=== PATIENT | female | born 1995 | race Caucasian/White ===

== ENCOUNTER 2020-09-23 15:35 | Outpatient (REF) | payer MEDICAID, SELFPAY | END 2020-09-23 15:36 | disposition home or self-care (01) | LOC: HO.LAB 15:35 | PROVIDERS: Visit Provider Internal Medicine | DX: Z20.828 Contact with and (suspected) exposure to other viral communicable diseases (principal) | CPT/HCPCS: C9803; U0003 ==

== ENCOUNTER 2021-04-19 17:08 | Emergency (ER) | payer MEDICAID, SELFPAY ==
[2021-04-19 18:00] VITALS: BP 108/61; PULSE 56; RESP 20; O2SAT 100; BMI 31.4
--- NOTE | 2021-04-19 19:33 | ED.FEMALEGU ---
HPI - Female Genitourinary General Chief complaint: Urogenital-Female Stated complaint: Flank pain Time Seen by Provider: 04/19/21 17:28 Source: patient and family Mode of arrival: ambulatory Limitations: no limitations History of Present Illness MD elicited complaint: other (back pain) Onset (ago): day(s) (2) Location of symptoms: low back Severity: moderate Female Urogenital Radiation: Non-Radiating Quality of pain: cramping Consistency: constant Vaginal discharge: none Vaginal bleeding: none Exacerbating factors: movement Relieving factors: none Associated symptoms: denies other symptoms Treatment prior to arrival: none Related Data Previous Rx's Medication Instructions Recorded cyclobenzaprine 10 mg PO TID PRN #14 tab 04/19/21 ibuprofen 600 mg PO Q6H PRN #30 tab 04/19/21 lidocaine 1 patch TOPICAL DAILY PRN #10 ea 04/19/21 nitrofurantoin monohyd/m-cryst 100 mg PO BID 5 Days #10 cap 04/19/21 [Macrobid] Allergies Allergy/AdvReac Type Severity Reaction Status Date / Time No Known Allergies Allergy Unverified 06/18/20 17:49 [No Known Allergies*] pt states no food/medication Allergy Unknown Uncoded 12/20/16 00:00 a Review of Systems Review of Systems: Constitutional : No Weight loss, No Fever, No Chills, ENT/Mouth : No Hearing loss, No Ear Pain, No Nasal Congestion, No Sinus Pain, No Hoarseness, No sore throat, No Rhinorrhea, No Swallowing Difficulty Cardiovascular : No Chest Pain, No SOB Respiratory : No Cough, No Dyspnea Gastrointestinal : No Nausea, No Vomiting, No Diarrhea, No abdominal Pain, No Hematochezia, No Melena Genitourinary : No Dysuria, No Urinary Frequency, No Hematuria, No Urinary Incontinence, Musculoskeletal : positive back pain Skin : No Skin Lesions, No rash Neuro : No Weakness, No Numbness, No Paresthesias, no loss of bowel or bladder incontinence, no saddle anesthesia PMFSH Past Medical History Attestation statement: The following information was validated with the patient. Medical History No active medical problems Social History Social History (Updated 04/19/21 @ 19:50 by Ramya Jimenez DO) Patient Tobacco Use Status: Never used Tobacco Use of substances other than those prescribed or required for medical reasons: No Advance Directives: No Advance Directives Information Provided: Yes Patient : No Physical Exam Vital Signs: Vital Signs: Last Vital Signs Pulse 56 04/19/21 18:00 Resp 20 04/19/21 18:00 BP 108/61 04/19/21 18:00 Pulse Ox 100 04/19/21 18:00 Body Mass Index 31.4 Appearance: Alert. Oriented X3. No acute distress. Eyes: Pupils equal, round and reactive to light. ENT: Pharynx normal. Neck: Normal inspection. Neck supple. CVS: Normal heart rate and rhythm. Pulses normal. Respiratory: No respiratory distress. Breath sounds normal. Abdomen: Soft and non-tender. Back: ttp along L low lumbar back Skin: Skin warm and dry. Normal skin color. Normal skin turgor. Extremities: No lower extremity edema. No calf ttp Neuro: Oriented X 3. No motor deficit. No sensory deficit. Course Course Course Narrative: no vomiting, afebrile, doubt stone doubt pyelo will place on macrobid MDM - Female Genitourinary MDM Narrative Medical decision making narrative: 25 yo female otherwise healthy here with L low back pain no b/b incontinence, no saddle anesthesia - pain seems MSK in nature, no GI or symptoms no prior stones, at this time will obtain UA, treat for pain and if improved stable for DC Lab Data Labs: Lab Results 04/19/21 04/19/21 Range/Units 19:35 19:59 Urine Color YELLOW Urine Appearance HAZY Urine pH 6.0 (5.0-8.0) Ur Specific [place] >= 1.030 H (1.005-1.025) Urine Protein NEG (NEG-TRACE) MG/DL Urine Glucose (UA) NEG (NEG) MG/DL Urine Ketones NEG (NEG) MG/DL Urine Blood NEG (NEG) Urine Nitrite NEG (NEG) Ur Leukocyte Esterase TRACE H (NEG) Urine RBC 0 (0) /HPF Urine WBC 5-9 H (0-4) /HPF Ur Squamous Epith Cells 3+ /LPF Urine Bacteria 2+ /LPF Urine Test NEGATIVE (NEGATIVE) Discharge Plan Discharge Clinical Impression: Urinary tract infection Qualifiers: Urinary tract infection type: acute cystitis Hematuria presence: without hematuria Qualified Code(s): N30.00 - Acute cystitis without hematuria Low back pain Qualifiers: Chronicity: acute Back pain laterality: left Sciatica presence: without sciatica Qualified Code(s): M54.5 - Low back pain Patient Disposition: Home, Self-Care Instructions: Urinary Tract Infection in Women (ED), Acute Low Back Pain (ED) Additional Instructions: return to ED for any worsening symptoms or concerns Prescriptions: New cyclobenzaprine 10 mg tablet 10 mg PO TID PRN (Reason: muscle spasm) Qty: 14 RF: 0 lidocaine 4 % adhesive patch,medicated 1 patch topical DAILY PRN (Reason: pain) Qty: 10 RF: 0 ibuprofen 600 mg tablet 600 mg PO Q6H PRN (Reason: pain) Qty: 30 RF: 0 nitrofurantoin monohyd/m-cryst [Macrobid] 100 mg capsule 100 mg PO BID 5 Days Qty: 10 RF: 0 Stand Alone Forms: Work/School Release
[2021-04-19] MEDS: Cyclobenzaprine HCl 10 MG TABLET PO (19:39)
[2021-04-19] MEDS: Ketorolac Tromethamine 60 MG/2 ML VIAL IM (19:39)
[2021-04-19] MEDS: Lidocaine 4 % Patch ADH..PATCH 1 PATCH TRANSDERMA (19:40)
[2021-04-19 19:46] LABS: UPreg QC Valid YES; Urine Pregnancy NEGATIVE (NEGATIVE)
[2021-04-19 20:12] LABS: Glucose Urine UA NEG (NEG); Leukocyte Esterase Urine TRACE (NEG); Nitrite Urine NEG (NEG); Specific Gravity - Urine >= 1.030 (1.005-1.025); UACC Culture Trigger YES; Urine Blood NEG (NEG); Urine Ketones NEG (NEG); Urine Protein NEG (NEG-TRACE)
[2021-04-19 20:14] LABS: Appearance Urine HAZY; Color Urine YELLOW
[2021-04-19 20:20] LABS: Bacteria Urine 2+ /LPF; RBC Urine 0 /HPF (0); Squamous Epithelial Cell Urine 3+ /LPF
[2021-04-19] MEDS: Nitrofurantoin Monohyd/M-Cryst 100 MG CAPSULE PO (20:37)
== END 2021-04-19 20:39 | disposition home or self-care (01) ==
PROVIDERS: Physician Assistant Medical; Emergency Provider Emergency Medicine
DX: N30.00 Acute cystitis without hematuria (principal); M54.5 Low back pain
CPT/HCPCS: 81001; 81003; 81025; 87086; 96372; 99284; J1885

== ENCOUNTER 2021-08-19 12:10 | Emergency (ER) | payer MEDICAID, SELFPAY ==
--- NOTE | 2021-08-19 | ECG_ITS ---
Test Reason : CHEST PAIN Blood Pressure : / mmHG Vent. Rate : 067 BPM Atrial Rate : 067 BPM P-R Int : 132 ms QRS Dur : 080 ms QT Int : 392 ms P-R-T Axes : 043 009 -07 degrees QTc Int : 414 ms Sinus rhythm with frequent Premature ventricular complexes in a pattern of bigeminy Abnormal ECG When compared with ECG of 31-JAN-2018 10:15, No significant change was found Referred By: Generic ED Physician Electronically Signed By:OBEY CHUA MD
--- NOTE | ~2021-08-19 | XR_ITS ---
EXAMINATION: XR CHEST CLINICAL INFORMATION: Chest tightness COMPARISON: Chest x-ray 01/31/2018 TECHNIQUE: Frontal view of the chest was obtained. FINDINGS: No significant abnormality is noted involving the heart, lungs, mediastinum, bony thorax or soft tissues. XR/XR chest 1V IMPRESSION: Unremarkable chest examination.
[2021-08-19 12:16] VITALS: BP 115/68; PULSE 40; RESP 18; TEMP 36.6; O2SAT 99; BMI 31.3
[2021-08-19 14:38] LABS: MANUAL DIFF FLAG NO
[2021-08-19 14:42] LABS: Basophils Percent Auto 0.5 % (0-2); Eosinophils Absolute Auto 0.2 X10*3/uL (0.0-0.4); Eosinophils Percent Auto 1.8 % (0-4); Hematocrit 41.5 % (37.0-47.0); Hemoglobin 12.9 g/dl (12.0-16.0); Imm Gran Abs Auto 0.02 X10*3/uL (0.00-0.03); Imm Gran Pct Auto 0.2 % (0.0-0.4); Lymphocytes Absolute Auto 1.5 X10*3/uL (1.2-4.9); Lymphocytes Percent Auto 17.5 % (20-40); Mean Corpuscular HGB Conc 31.1 g/dl (31.0-35.0); Mean Corpuscular Hemoglobin 28.9 pg (27.0-33.0); Mean Corpuscular Volume 92.8 fL (80.0-98.0); Mean Platelet Volume 12.1 fL (9.4-12.3); Monocytes Absolute Auto 0.5 X10*3/uL (0.1-1.2); Monocytes Percent Auto 5.8 % (2-11); Neutrophils Absolute Auto 6.5 x10*3/uL (2.0-8.3); Neutrophils Percent Auto 74.2 % (45-73); Platelet Count 247 X10*3/uL (160-400); Red Blood Count 4.47 X10*6/uL (4.20-5.50); Red Cell Distribution Width 14.3 % (11.0-16.0); White Blood Count 8.7 X10*3/uL (4.8-10.8)
[2021-08-19 14:54] LABS: Anion Gap 11 (12-20); Blood Urea Nitrogen 11 mg/dL (9-16); Calcium 9.3 mg/dL (8.4-10.2); Carbon Dioxide 25 mmol/L (22-29); Chloride 106 mmol/L (96-108); Creatinine Clr Calc Pharmacy 140.8; Estimated Glomerular Filt Rate > 60; Glucose Random 103 mg/dL (60-115); Potassium 4.1 mmol/L (3.3-5.1); Sodium 138 mmol/L (135-145)
[2021-08-19 15:00] LABS: Troponin-I High Sensitivity < 3.5 ng/L (<3.5-17.0)
[2021-08-19 15:02] LABS: COVID-19 Test Negative (Negative); IDNOW Serial# 08D9AD1C
--- NOTE | 2021-08-19 18:20 | ED_ITS ---
HPI - Chest Pain General Chief Complaint: Chest Pain Stated Complaint: tight chest unable to breathe Time Seen by Provider: 08/19/21 17:47 Source: patient Mode of arrival: ambulatory Limitations: no limitations History of Present Illness HPI narrative: 25 years old female is here today for complaining chest tightness when she takes a deep breath and with cough. Patient reports that she started this symptoms this morning. Denies any ill contacts. Patient reports that she had COVID vaccine already. Blood work CBC and chemistry done while waiting to come in to ER in the waiting room. No leukocytosis, no abnormalities. COVID-19 swab was negative. Most likely upper respiratory infection MD complaint: chest discomfort (With deep inspiration and cough) Onset (ago): hour(s) Related Data Previous Rx's Medication Instructions Recorded cyclobenzaprine 10 mg tablet 10 mg PO TID PRN #14 tab 04/19/21 ibuprofen 600 mg tablet 600 mg PO Q6H PRN #30 tab 04/19/21 lidocaine 4 % topical patch 1 patch TOPICAL DAILY PRN #10 ea 04/19/21 nitrofurantoin 100 mg PO BID 5 Days #10 cap 04/19/21 monohydrate/macrocrystals 100 mg capsule (Macrobid) benzonatate 100 mg capsule 100 mg PO BID PRN #20 cap 08/19/21 cetirizine 10 mg tablet (All Day 10 mg PO DAILY PRN #20 tab 08/19/21 Allergy (cetirizine)) fluticasone propionate 50 1 spray INTRANASAL BID #16 g 08/19/21 mcg/actuation nasal spray,suspension (Flonase Allergy Relief) Allergies Allergy/AdvReac Type Severity Reaction Status Date / Time No Known Allergies Allergy Verified 08/19/21 12:16 [No Known Allergies*] Review of Systems Review of Systems: Constitutional : No Weight loss, No Fever, No Chills, No Night Sweats, No Fatigue, No Malaise ENT/Mouth : No Hearing loss, No Ear Pain, No Nasal Congestion, No Sinus Pain, No Hoarseness, No sore throat, No Rhinorrhea, No Swallowing Difficulty Eyes: No Eye Pain, No Swelling, No Redness, No Foreign Body, No Discharge, No Vision Changes Cardiovascular : No Chest Pain, No SOB, No Dyspnea on Exertion, No Orthopnea, No Edema, No Palpitations Respiratory : No Cough, No Sputum, No Wheezing, No Smoke Exposure, No Dyspnea Gastrointestinal : No Nausea, No Vomiting, No Diarrhea, No Constipation, No abdominal Pain, No Hematochezia, No Melena Genitourinary : no irregular bleeding, No Dysuria, No Urinary Frequency, No Hematuria, No Urinary Incontinence, No Urgency, No Flank Pain, No Urinary Flow Changes, No Hesitancy Musculoskeletal : No joint pain, No Myalgias, No Joint Swelling Skin : No Skin Lesions, No rash Neuro : No Weakness, No Numbness, No Paresthesias, No Loss of Consciousness, No Dizziness, No Headache Yes all other systems are reviewed and are negative PMFSH Past Medical History Medical History No active medical problems Social History Social History (Updated 04/19/21 @ 19:50 by Ramya Jimenez DO) Alcohol intake: never Patient Tobacco Use Status: Never used Tobacco Advance Directives: No Advance Directives Information Provided: No Physical Exam Vital Signs: Vital Signs: Last Vital Signs Temp 97.9 F 08/19/21 12:16 Pulse 40 L 08/19/21 12:16 Resp 18 08/19/21 12:16 BP 115/68 08/19/21 12:16 Pulse Ox 99 08/19/21 12:16 Body Mass Index 31.3 Const: General: healthy appearing, no acute distress and well developed Nutritional Appearance: well nourished Orientation/consciousness: patient oriented x3 HENMT: Head: Yes normal to inspection, Yes normocephalic and Yes atraumatic Face and sinus: Yes normal facial exam Mouth: Normal oral and palatal mucosa present Throat: Yes posterior oropharynx normal, Yes tonsils normal and Yes uvula midline Eyes: General: appearance normal, both eyes and all related structures Neck: Neck: Yes normal visual inspection, Yes full ROM and Yes trachea midline Thyroid: Thyroid normal Resp: Effort & Inspection: normal respiratory effort, able to speak in complete sentences, no tracheal deviation and symmetric chest movement Auscultation: clear to auscultation bilaterally Cardio: Jugular venous distension: no JVD Rate: regular rate Rhythm: regular rhythm Heart sounds: S1 normal heart sound present, S2 normal heart sound present, no gallops and no murmurs GI: Inspection: Yes normal to inspection and No distended Palpation (GI): Soft to palpation, not firm, nontender and No hepatosplenomegaly present Auscultation: normal bowel sounds : General: Yes no CVA tenderness Back/Spine/Pelvis: Back: no CVA tenderness Skin: General skin exam: elasticity normal, turgor normal and dry skin Neuro: General: patient oriented x3 Psych: Appearance: grossly normal Mental Status: mental status grossly normal Speech and movement: Normal speech and movement present Affect: normal affect Attitude: cooperative Thought process: Normal thought process present Thought content: Normal thought content present Insight: Good insight present (Psych) Judgement: Good judgement present (Psych) Course Course Course Narrative: 25 years old female is here today for complaining of cold-like symptoms. Patient reports that she started this morning with rhinitis, sore throat, postnasal drip. She reports that when she takes deep breath she feels chest tightness also when she coughs she also feels chest tightness. Patient denies any fever or chills. Denies any ill contacts. She did receive COVID vaccine both shots. Chest x-ray, labs and COVID swab was ordered in triage. CBC shows no leukocytosis no anemia. Chemistry is normal. Chest x-ray shows no acute processes. COVID swab was negative. Will send patient home with Floangel, Leigh and Adonay Mondragon. Patient was encouraged to return if she will exp erience worsening symptoms MDM - Chest Pain Lab Data Result diagrams: 08/19/21 14:28 08/19/21 14:28 Labs: Lab Results 08/19/21 08/19/21 08/19/21 Range/Units 14:28 14:28 14:28 WBC 8.7 (4.8-10.8) X10*3/uL RBC 4.47 (4.20-5.50) X10*6/uL Hgb 12.9 (12.0-16.0) g/dl Hct 41.5 (37.0-47.0) % MCV 92.8 (80.0-98.0) fL MCH 28.9 (27.0-33.0) pg MCHC 31.1 (31.0-35.0) g/dl RDW 14.3 (11.0-16.0) % Plt Count 247 (160-400) X10*3/uL MPV 12.1 (9.4-12.3) fL Immature Gran % (Auto) 0.2 (0.0-0.4) % Neut % (Auto) 74.2 H (45-73) % Lymph % (Auto) 17.5 L (20-40) % Ector % (Auto) 5.8 (2-11) % Eos % (Auto) 1.8 (0-4) % Baso % (Auto) 0.5 (0-2) % Lymph # (Auto) 1.5 (1.2-4.9) X10*3/uL Ector # (Auto) 0.5 (0.1-1.2) X10*3/uL Eos # (Auto) 0.2 (0.0-0.4) X10*3/uL Baso # (Auto) 0.0 (0.0-0.2) X10*3/uL Abs Immat Gran (auto) 0.02 (0.00-0.03) X10*3/uL Absolute Neuts (auto) 6.5 (2.0-8.3) x10*3/uL Absolute Nucleated RBC 0.000 (0.0-0.012) X10*3/uL Nucleated RBC % (auto) 0.0 (0.0-0.2) /100WBC Sodium 138 (135-145) mmol/L Potassium 4.1 (3.3-5.1) mmol/L Chloride 106 (96-108) mmol/L Carbon Dioxide 25 (22-29) mmol/L Anion Gap 11 L (12-20) BUN 11 (9-16) mg/dL Creatinine 0.70 (0.5-1.4) mg/dL Estim Creat Clear Calc 140.8 Estimated GFR > 60 Random Glucose 103 (60-115) mg/dL Calcium 9.3 (8.4-10.2) mg/dL Troponin I High Sens (<3.5-17.0) ng/L COVID-19 ([facility]) Negative (Negative) COVID-19 Clin Com See Note 08/19/21 Range/Units 14:28 WBC (4.8-10.8) X10*3/uL RBC (4.20-5.50) X10*6/uL Hgb (12.0-16.0) g/dl Hct (37.0-47.0) % MCV (80.0-98.0) fL MCH (27.0-33.0) pg MCHC (31.0-35.0) g/dl RDW (11.0-16.0) % Plt Count (160-400) X10*3/uL MPV (9.4-12.3) fL Immature Gran % (Auto) (0.0-0.4) % Neut % (Auto) (45-73) % Lymph % (Auto) (20-40) % Ector % (Auto) (2-11) % Eos % (Auto) (0-4) % Baso % (Auto) (0-2) % Lymph # (Auto) (1.2-4.9) X10*3/uL Ector # (Auto) (0.1-1.2) X10*3/uL Eos # (Auto) (0.0-0.4) X10*3/uL Baso # (Auto) (0.0-0.2) X10*3/uL Abs Immat Gran (auto) (0.00-0.03) X10*3/uL Absolute Neuts (auto) (2.0-8.3) x10*3/uL Absolute Nucleated RBC (0.0-0.012) X10*3/uL Nucleated RBC % (auto) (0.0-0.2) /100WBC Sodium (135-145) mmol/L Potassium (3.3-5.1) mmol/L Chloride (96-108) mmol/L Carbon Dioxide (22-29) mmol/L Anion Gap (12-20) BUN (9-16) mg/dL Creatinine (0.5-1.4) mg/dL Estim Creat Clear Calc Estimated GFR Random Glucose (60-115) mg/dL Calcium (8.4-10.2) mg/dL Troponin I High Sens < 3.5 (<3.5-17.0) ng/L COVID-19 ([facility]) (Negative) COVID-19 Clin Com Imaging Data Chest x-ray: Attestation: I personally reviewed and interpreted this imaging study as follows: Radiologist's impression: FINDINGS: No significant abnormality is noted involving the heart, lungs, mediastinum, bony thorax or soft tissues. ECG Data ECG #1: Attestation: I personally reviewed and interpreted this ECG as follows: Interpretation: EKG compared with the 1 from January 31, 2018 and there is no change. Sinus rhythm ventricular rate 62, PVC with bigeminy pattern. AL interval 0.13, QRS 0.08, QTC 414 Discharge Plan Discharge Clinical Impression: Upper respiratory infection, viral, Costochondritis Patient Disposition: Home, Self-Care Instructions: Viral Syndrome (ED) Additional Instructions: You were seen here today for chest tightness when taking a deep breath and coughing and upper respiratory symptoms like runny nose cough. Your blood work, EKG, chest x-ray were all negative for any acute findings. Please follow-up with your primary care provider. You will be sent home with Leigh Mccray and Adonay Mondragon Prescriptions: New cetirizine [All Day Allergy (cetirizine)] 10 mg tablet 10 mg PO DAILY PRN (Reason: allergy symptoms) Qty: 20 RF: 0 fluticasone propionate [Flonase Allergy Relief] 50 mcg/actuation spray,suspension 1 spray intranasal BID Qty: 16 RF: 0 benzonatate 100 mg capsule 100 mg PO BID PRN (Reason: cough) Qty: 20 RF: 0 No Action cyclobenzaprine 10 mg tablet 10 mg PO TID PRN (Reason: muscle spasm) Qty: 14 RF: 0 lidocaine 4 % adhesive patch,medicated 1 patch topical DAILY PRN (Reason: pain) Qty: 10 RF: 0 ibuprofen 600 mg tablet 600 mg PO Q6H PRN (Reason: pain) Qty: 30 RF: 0 nitrofurantoin monohyd/m-cryst [Macrobid] 100 mg capsule 100 mg PO BID 5 Days Qty: 10 RF: 0 Stand Alone Forms: Work/School Release Interventions: ED Discharge Assessment Last Done: 08/19/21 19:19 Discharge Date/Time: 08/19/21 19:20
== END 2021-08-19 19:20 | disposition home or self-care (01) ==
PROVIDERS: Emergency Provider Emergency Medicine
DX: J06.9 Acute upper respiratory infection, unspecified (principal); M94.0 Chondrocostal junction syndrome [Tietze]; Z20.822 Contact with and (suspected) exposure to COVID-19; J02.9 Acute pharyngitis, unspecified
CPT/HCPCS: 36415; 71045; 80048; 84484; 85025; 87635; 93005; 99283

== ENCOUNTER 2022-08-28 15:38 | Emergency (ER) | payer MEDICAID, SELFPAY ==
--- NOTE | ~2022-08-28 | US_ITS ---
EXAMINATION: US , LESS THAN 14 WEEKS CLINICAL INFORMATION: Pain. patient. HCG equals 77,197 COMPARISON: None. TECHNIQUE: Transcutaneous early obstetrical ultrasound. FINDINGS: There is a live single intrauterine gestation. There is normal amniotic fluid volume. The gestational sac contour is smooth. Cardiac activity was present. Somatic activity was not documented. A yolk sac is demonstrated The uterus measures approximately 10.7 x 6.6 x 4.9 cm There is no suspicious abnormality in the region of the cervix. The uterine contour is smooth. There is some decidual reaction. Placenta findings: No well-defined placenta demonstrated. There is some decidual reaction. The gestational sac is somewhat displaced. There are areas of altered echotexture within the myometrium. These are nonspecific. Possibilities include fibroids. However, the appearance is not typical. Alternative possibilities include areas of uterine contraction or even areas of hemorrhage. No large adnexal mass. The right ovary measures approximately 3.4 x 1.7 x 1.5 cm.The estimated right ovarian volume is 4 mL. The left ovary measures approximately 3.1 x 2.2 x 2.0 cm. The estimated left ovarian volume is close to 7 mL. Measurements include: The mean sac diameter was not documented. The yolk sac size was not documented. The crown-rump length is 1.3 cm. The best estimated gestational age based upon the crown-rump length is 7 weeks 5 days. This yields an estimated date of confinement of 04/11/23 cardiac activity was present at 163 beats per minute. survey: Early gestational age precludes survey. There is no significant free pelvic fluid. US/US OB pelvic and transvaginal IMPRESSION: There is a live single intrauterine gestation with the best estimate of gestational age is 7 weeks 5 days. Cardiac activity present at 163 bpm. Abnormal myometrial echogenicity. Possibilities include fibroids, uterine contractions or areas of hemorrhage. Depending upon the clinical circumstances consider a follow-up study.
--- NOTE | 2022-08-28 17:06 | ED_ITS ---
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 Patient states she developed lower abdominal pain this morning at 09:00 hours. She describes the pain is an intermittent pressure-like pain and squeezing pain. The pain was 6/10 at its worst. She denied any bleeding or vaginal discharge. She did have associated nausea. Patient does not know when her last menstrual period occurred but she states that yesterday she checked a test at home and it was positive. The patient is a she states there were no complications during her 1st 2 years prior.. The patient denied fever, chills, rhinorrhea, sore throat, cough, chest pain, shortness of breath. She has had nausea with no vomiting. She denied dysuria b ut did note some frequency. <Alfie Mcgraw MD - Last Filed: 08/28/22 22:05> complaint: Pelvic pain <Alfie Mcgraw MD - Last Filed: 08/28/22 22:05> Onset (ago): day(s) (1) <Alfie Mcgraw MD - Last Filed: 08/28/22 22:05> Location: pelvis <Alfie Mcgraw MD - Last Filed: 08/28/22 22:05> Radiation: non-radiation <Alfie Mcgraw MD - Last Filed: 08/28/22 22:05> Severity: moderate <Alfie Mcgraw MD - Last Filed: 08/28/22 22:05> Severity scale (1-10): 6 <Alfie Mcgraw MD - Last Filed: 08/28/22 22:05> Quality: other (Pressure, squeezing) <Alfie Mcgraw MD - Last Filed: 08/28/22 22:05> Pain Consistency: intermittent <Alfie Mcgraw MD - Last Filed: 08/28/22 22:05> Relieving factors: none <Alfie Mcgraw MD - Last Filed: 08/28/22 22:05> Exacerbating factors: none <Alfie Mcgraw MD - Last Filed: 08/28/22 22:05> Associated symptoms: nausea/vomiting <Alfie Mcgraw MD - Last Filed: 08/28/22 22:05> Treatments prior to arrival: none <Alfie Mcgraw MD - Last Filed: 08/28/22 22:05> Related Data Home medications: Previous Rx's Medication Instructions Recorded cyclobenzaprine 10 mg tablet 10 mg PO TID PRN muscle spasm #14 04/19/21 tabs ibuprofen 600 mg tablet 600 mg PO Q6H PRN pain #30 tabs 04/19/21 lidocaine 4 % topical patch 1 patch topical DAILY PRN pain #10 04/19/21 ea nitrofurantoin 100 mg PO BID 5 days #10 caps 04/19/21 monohydrate/macrocrystals 100 mg capsule (Macrobid) benzonatate 100 mg capsule 100 mg PO BID PRN cough #20 caps 08/19/21 cetirizine 10 mg tablet (All Day 10 mg PO DAILY PRN allergy 08/19/21 Allergy (cetirizine)) symptoms #20 tabs fluticasone propionate 50 1 spray intranasal BID #16 grams 08/19/21 mcg/actuation nasal spray,suspension (Flonase Allergy Relief) prenat.vits,kimberly,dni-[id number]-[id number] 1 tab PO DAILY 90 days #90 tabs 08/28/22 <MARIA Newell - Last Filed: 08/28/22 17:11> Allergies/adverse reactions: Allergies Allergy/AdvReac Type Severity Reaction Status Date / Time No Known Allergies Allergy Verified 08/19/21 12:16 [No Known Allergies*] <MARIA Newell - Last Filed: 08/28/22 17:11> Review of Systems Review of Systems: Yes all other systems are reviewed and are negative <Alfie Mcgraw MD - Last Filed: 08/28/22 22:05> [facility] Past Medical History [facility] Narrative: Past medical history: G2, P1-1 full-term delivery, no complications, 2 years prior. Past surgical history: None. Social history: She denies tobacco, alcohol and drug use. <Alfie Mcgraw MD - Last Filed: 08/28/22 22:05> Medical History: Medical History No active medical problems <MARIA Newell - Last Filed: 08/28/22 17:11> Social History Social History: Social History (Updated 04/19/21 @ 19:50 by Dhara Jimenez DO) Alcohol intake: never Patient Tobacco Use Status: Never used Tobacco Advance Directives: No Advance Directives Information Provided: No <MARIA Newell - Last Filed: 08/28/22 17:11> Physical Exam ED Vital Signs: Vital Signs - 24 hr 08/28/22 17:07 08/28/22 21:21 Temperature 97.8 F 97.9 F Pulse Rate 83 80 Respiratory Rate 20 18 Blood Pressure 147/93 H 108/61 Pulse Oximetry 100 100 Oxygen Delivery Method Room Air Room Air BMI result Body Mass Index 35.2 <MARIA Newell - Last Filed: 08/28/22 17:11> Vital Signs - 24 hr 08/28/22 17:07 08/28/22 21:21 Temperature 97.8 F 97.9 F Pulse Rate 83 80 Respiratory Rate 20 18 Blood Pressure 147/93 H 108/61 Pulse Oximetry 100 100 Oxygen Delivery Method Room Air Room Air BMI result Body Mass Index 35.2 <Alfie Mcgraw MD - Last Filed: 08/28/22 22:05> Const General: cooperative and no acute distress <Alfie Mcgraw MD - Last Filed: 08/28/22 22:05> Orientation/consciousness: oriented to person and oriented to place <Alfie Mcgraw MD - Last Filed: 08/28/22 22:05> Limitations: no limitations <Alfie Mcgraw MD - Last Filed: 08/28/22 22:05> HENMT Head: Yes normal to inspection, Yes normocephalic and Yes atraumatic <Alfie Mcgraw MD - Last Filed: 08/28/22 22:05> Ears: external ears normal <Alfie Mcgraw MD - Last Filed: 08/28/22 22:05> General nose exam: Normal external nose present <MD Rodolfo Sosa Last Filed: 08/28/22 22:05> Face and sinus: Yes normal facial exam <Alfie Mcgraw MD - Last Filed: 08/28/22 22:05> Mouth: Normal oral and palatal mucosa present <MD Rodolfo Sosa Last Filed: 08/28/22 22:05> Throat: Yes posterior oropharynx normal <Alfie Mcgraw MD - Last Filed: 08/28/22 22:05> Eyes General: appearance normal, both eyes and all related structures <Alfie Mcgraw MD - Last Filed: 08/28/22 22:05> Pupils: Equal, round and reactive pupils present <MD Rodolfo Sosa Last Filed: 08/28/22 22:05> Neck Neck: Yes normal visual inspection, Yes no lymphadenopathy, Yes trachea midline and Yes supple <MD Rodolfo Sosa Last Filed: 08/28/22 22:05> Chest Chest palpation & inspection: normal inspection of the chest and normal palpation of entire chest wall <MD Rodolfo Sosa Last Filed: 08/28/22 22:05> Resp Effort & Inspection: normal respiratory effort and able to speak in complete sentences <MD Rodolfo Sosa Last Filed: 08/28/22 22:05> Auscultation: clear to auscultation bilaterally <MD Rodolfo Sosa Last Filed: 08/28/22 22:05> Cardio Rate: regular rate <Alfie Mcgraw MD - Last Filed: 08/28/22 22:05> Rhythm: regular rhythm <Alfie Mcgraw MD - Last Filed: 08/28/22 22:05> Heart sounds: S1 normal heart sound present, S2 normal heart sound present and no murmurs <Alfie Mcgraw MD - Last Filed: 08/28/22 22:05> GI Inspection: Yes normal to inspection <Alfie Mcgraw MD - Last Filed: 08/28/22 22:05> Palpation (GI): Soft to palpation, Tenderness to palpation present (GI) suprapubicly (Mild) and no guarding <Alfie Mcgraw MD - Last Filed: 08/28/22 22:05> Auscultation: normal bowel sounds <Alfie Mcgraw MD - Last Filed: 08/28/22 22:05> General: Yes no CVA tenderness <Alfie Mcgraw MD - Last Filed: 08/28/22 22:05> Back/Spine/Pelvis Back: no CVA tenderness <Alfie Mcgraw MD - Last Filed: 08/28/22 22:05> Skin General skin exam: no rashes or lesions noted <Alfie Mcgraw MD - Last Filed: 08/28/22 22:05> Neuro General: oriented to person and oriented to place <Alfie Mcgraw MD - Last Filed: 08/28/22 22:05> Cranial nerves: Yes CN's II-XII intact bilaterally and Yes Equal, round and reactive pupils present <Alfie Mcgraw MD - Last Filed: 08/28/22 22:05> Cognition (Neuro): normal cognition <Alfie Mcgraw MD - Last Filed: 08/28/22 22:05> Motor exam (neuro): 5/5 motor strength present throughout <Alfie Mcgraw MD - Last Filed: 08/28/22 22:05> Extrem General: Yes normal to inspection <Alfie Mcgraw MD - Last Filed: 08/28/22 22:05> Psych Appearance: grossly normal <Alfie Mcgraw MD - Last Filed: 08/28/22 22:05> Speech and movement: Normal speech and movement present <Alfie Mcgraw MD - Last Filed: 08/28/22 22:05> Affect: normal affect <Alfie Mcgraw MD - Last Filed: 08/28/22 22:05> Attitude: cooperative <Alfie Mcgraw MD - Last Filed: 08/28/22 22:05> Thought process: Normal thought process present <Alfie Mcgraw MD - Last Filed: 08/28/22 22:05> Thought content: Normal thought content present <Alfie Mcgraw MD - Last Filed: 08/28/22 22:05> Course Course Course Narrative: RME performed by Reina Luna PA-C. Patient is a 26 year old female presenting to the emergency department today with back and abdominal pain. Patient states that she had a positive test yesterday and she's concerned it has to do with that. Patient is . CBC, CMP, Type and Screen, Pt and PTT, UA, and transvaginal US ordered. Patient to be placed back in the waiting room pending results and bed availability. <MARIA Newell - Last Filed: 08/28/22 17:11> RME performed by Reina Luna PA-C. Patient is a 26 year old female presenting to the emergency department today with back and abdominal pain. Patient states that she had a positive test yesterday and developed suprapubic pain today at 09:00 hours. She describes the pain is a squeezing/pressure-like sensation was intermittent was 6/10 at its worst. The patient is a with unknown last menstrual period. Exam did reveal suprapubic tenderness. Laboratory evaluation revealed a normal CBC, CMP and coags. Urinalysis and microscopic is consistent was non clean catch urine. Pelvic ultrasound did reveal a single live IUP with heart rate of 163 beats per minute. There was an incidental finding of a myometrial echogenic abnormality which I did discuss with the patient. I did discuss the possibility of a threatened day be with the patient. Patient was advised to take Tylenol for her pain. She was also prescribed vitamins. She will need to follow-up with our OBGYN service for further management and treatment of her pr egnancy. <Alfie Mcgraw MD - Last Filed: 08/28/22 22:05> Medical Decision Making Lab Data Result diagrams: : 08/28/22 17:28 08/28/22 17:30 <MARIA Newell - Last Filed: 08/28/22 17:11> Labs: Lab Results 08/28/22 08/28/22 08/28/22 Range/Units 17:28 17:28 17:28 WBC 8.8 (4.8-10.8) X10*3/uL RBC 4.65 (4.20-5.50) X10*6/uL Hgb 14.0 (12.0-16.0) g/dl Hct 43.7 (37.0-47.0) % MCV 94.0 (80.0-98.0) fL MCH 30.1 (27.0-33.0) pg MCHC 32.0 (31.0-35.0) g/dl RDW 14.1 (11.0-16.0) % Plt Count 246 (160-400) X10*3/uL MPV 11.7 (9.4-12.3) fL Immature Gran % (Auto) 0.3 (0.0-0.4) % Neut % (Auto) 68.8 (45-73) % Lymph % (Auto) 20.1 (20-40) % [place] % (Auto) 9.3 (2-11) % Eos % (Auto) 0.9 (0-4) % Baso % (Auto) 0.6 (0-2) % Lymph # (Auto) 1.8 (1.2-4.9) X10*3/uL [place] # (Auto) 0.8 (0.1-1.2) X10*3/uL Eos # (Auto) 0.1 (0.0-0.4) X10*3/uL Baso # (Auto) 0.1 (0.0-0.2) X10*3/uL Abs Immat Gran (auto) 0.03 (0.00-0.03) X10*3/uL Absolute Neuts (auto) 6.1 (2.0-8.3) x10*3/uL Absolute Nucleated RBC 0.000 (0.0-0.012) X10*3/uL Nucleated RBC % (auto) 0.0 (0.0-0.2) /100WBC PT (10.0-13.1) SEC INR (0.9-1.1) APTT (26.0-36.4) SEC Sodium (135-145) mmol/L Potassium (3.3-5.1) mmol/L Chloride (96-108) mmol/L Carbon Dioxide (22-29) mmol/L Anion Gap (12-20) BUN (9-16) mg/dL Creatinine (0.5-1.4) mg/dL Estim Creat Clear Calc Estimated GFR Random Glucose (60-115) mg/dL Calcium (8.4-10.2) mg/dL Magnesium (1.6-2.6) mg/dL Total Bilirubin (0.0-1.0) mg/dL AST (5-31) U/L ALT (0-31) U/L Alkaline Phosphatase (39-117) U/L Total Protein (6.5-8.0) g/dL Albumin (3.5-5.0) g/dL Beta HCG, Quant mIU/mL Urine Color Yellow Urine Appearance Turbid Urine pH 7.0 (5.0-9.0) Ur Specific [place] 1.015 (1.005-1.025) Urine Protein Negative (Neg-Trace) mg/dL Urine Glucose (UA) Negative (Negative) mg/dL Urine Ketones Negative (Negative) mg/dL Urine Blood Negative (Negative) Urine Nitrite Negative (Negative) Ur Leukocyte Esterase Large (3+) H (Negative) Urine RBC 0-2 (0-2) /HPF Urine WBC 11-20 H (0-5) /HPF Ur Squamous Epith Cells 11-20 (0-2) /HPF Urine Bacteria Trace (None Seen) Hyaline Casts 0-2 (0-2) /LPF Blood Type A Positive Antibody Screen NEGATIVE 08/28/22 08/28/22 Range/Units 17:30 17:30 WBC (4.8-10.8) X10*3/uL RBC (4.20-5.50) X10*6/uL Hgb (12.0-16.0) g/dl Hct (37.0-47.0) % MCV (80.0-98.0) fL MCH (27.0-33.0) pg MCHC (31.0-35.0) g/dl RDW (11.0-16.0) % Plt Count (160-400) X10*3/uL MPV (9.4-12.3) fL Immature Gran % (Auto) (0.0-0.4) % Neut % (Auto) (45-73) % Lymph % (Auto) (20-40) % [place] % (Auto) (2-11) % Eos % (Auto) (0-4) % Baso % (Auto) (0-2) % Lymph # (Auto) (1.2-4.9) X10*3/uL [place] # (Auto) (0.1-1.2) X10*3/uL Eos # (Auto) (0.0-0.4) X10*3/uL Baso # (Auto) (0.0-0.2) X10*3/uL Abs Immat Gran (auto) (0.00-0.03) X10*3/uL Absolute Neuts (auto) (2.0-8.3) x10*3/uL Absolute Nucleated RBC (0.0-0.012) X10*3/uL Nucleated RBC % (auto) (0.0-0.2) /100WBC PT 14.5 H (10.0-13.1) SEC INR 1.3 H (0.9-1.1) APTT 30.2 (26.0-36.4) SEC Sodium 136 (135-145) mmol/L Potassium 4.4 (3.3-5.1) mmol/L Chloride 102 (96-108) mmol/L Carbon Dioxide 25 (22-29) mmol/L Anion Gap 13 (12-20) BUN 7 L (9-16) mg/dL Creatinine 0.64 (0.5-1.4) mg/dL Estim Creat Clear Calc 162.1 Estimated GFR > 60 Random Glucose 97 (60-115) mg/dL Calcium 9.7 (8.4-10.2) mg/dL Magnesium 2.2 (1.6-2.6) mg/dL Total Bilirubin 0.4 (0.0-1.0) mg/dL AST 18 (5-31) U/L ALT 23 (0-31) U/L Alkaline Phosphatase 57 (39-117) U/L Total Protein 7.8 (6.5-8.0) g/dL Albumin 4.5 (3.5-5.0) g/dL Beta HCG, Quant 57461 mIU/mL Urine Color Urine Appearance Urine pH (5.0-9.0) Ur Specific [place] (1.005-1.025) Urine Protein (Neg-Trace) mg/dL Urine Glucose (UA) (Negative) mg/dL Urine Ketones (Negative) mg/dL Urine Blood (Negative) Urine Nitrite (Negative) Ur Leukocyte Esterase (Negative) Urine RBC (0-2) /HPF Urine WBC (0-5) /HPF Ur Squamous Epith Cells (0-2) /HPF Urine Bacteria (None Seen) Hyaline Casts (0-2) /LPF Blood Type Antibody Screen <MARIA Newell - Last Filed: 08/28/22 17:11> Lab Results 08/28/22 08/28/22 08/28/22 Range/Units 17:28 17:28 17:28 WBC 8.8 (4.8-10.8) X10*3/uL RBC 4.65 (4.20-5.50) X10*6/uL Hgb 14.0 (12.0-16.0) g/dl Hct 43.7 (37.0-47.0) % MCV 94.0 (80.0-98.0) fL MCH 30.1 (27.0-33.0) pg MCHC 32.0 (31.0-35.0) g/dl RDW 14.1 (11.0-16.0) % Plt Count 246 (160-400) X10*3/uL MPV 11.7 (9.4-12.3) fL Immature Gran % (Auto) 0.3 (0.0-0.4) % Neut % (Auto) 68.8 (45-73) % Lymph % (Auto) 20.1 (20-40) % [place] % (Auto) 9.3 (2-11) % Eos % (Auto) 0.9 (0-4) % Baso % (Auto) 0.6 (0-2) % Lymph # (Auto) 1.8 (1.2-4.9) X10*3/uL [place] # (Auto) 0.8 (0.1-1.2) X10*3/uL Eos # (Auto) 0.1 (0.0-0.4) X10*3/uL Baso # (Auto) 0.1 (0.0-0.2) X10*3/uL Abs Immat Gran (auto) 0.03 (0.00-0.03) X10*3/uL Absolute Neuts (auto) 6.1 (2.0-8.3) x10*3/uL Absolute Nucleated RBC 0.000 (0.0-0.012) X10*3/uL Nucleated RBC % (auto) 0.0 (0.0-0.2) /100WBC PT (10.0-13.1) SEC INR (0.9-1.1) APTT (26.0-36.4) SEC Sodium (135-145) mmol/L Potassium (3.3-5.1) mmol/L Chloride (96-108) mmol/L Carbon Dioxide (22-29) mmol/L Anion Gap (12-20) BUN (9-16) mg/dL Creatinine (0.5-1.4) mg/dL Estim Creat Clear Calc Estimated GFR Random Glucose (60-115) mg/dL Calcium (8.4-10.2) mg/dL Magnesium (1.6-2.6) mg/dL Total Bilirubin (0.0-1.0) mg/dL AST (5-31) U/L ALT (0-31) U/L Alkaline Phosphatase (39-117) U/L Total Protein (6.5-8.0) g/dL Albumin (3.5-5.0) g/dL Beta HCG, Quant mIU/mL Urine Color Yellow Urine Appearance Turbid Urine pH 7.0 (5.0-9.0) Ur Specific [place] 1.015 (1.005-1.025) Urine Protein Negative (Neg-Trace) mg/dL Urine Glucose (UA) Negative (Negative) mg/dL Urine Ketones Negative (Negative) mg/dL Urine Blood Negative (Negative) Urine Nitrite Negative (Negative) Ur Leukocyte Esterase Large (3+) H (Negative) Urine RBC 0-2 (0-2) /HPF Urine WBC 11-20 H (0-5) /HPF Ur Squamous Epith Cells 11-20 (0-2) /HPF Urine Bacteria Trace (None Seen) Hyaline Casts 0-2 (0-2) /LPF Blood Type A Positive Antibody Screen NEGATIVE 08/28/22 08/28/22 Range/Units 17:30 17:30 WBC (4.8-10.8) X10*3/uL RBC (4.20-5.50) X10*6/uL Hgb (12.0-16.0) g/dl Hct (37.0-47.0) % MCV (80.0-98.0) fL MCH (27.0-33.0) pg MCHC (31.0-35.0) g/dl RDW (11.0-16.0) % Plt Count (160-400) X10*3/uL MPV (9.4-12.3) fL Immature Gran % (Auto) (0.0-0.4) % Neut % (Auto) (45-73) % Lymph % (Auto) (20-40) % [place] % (Auto) (2-11) % Eos % (Auto) (0-4) % Baso % (Auto) (0-2) % Lymph # (Auto) (1.2-4.9) X10*3/uL [place] # (Auto) (0.1-1.2) X10*3/uL Eos # (Auto) (0.0-0.4) X10*3/uL Baso # (Auto) (0.0-0.2) X10*3/uL Abs Immat Gran (auto) (0.00-0.03) X10*3/uL Absolute Neuts (auto) (2.0-8.3) x10*3/uL Absolute Nucleated RBC (0.0-0.012) X10*3/uL Nucleated RBC % (auto) (0.0-0.2) /100WBC PT 14.5 H (10.0-13.1) SEC INR 1.3 H (0.9-1.1) APTT 30.2 (26.0-36.4) SEC Sodium 136 (135-145) mmol/L Potassium 4.4 (3.3-5.1) mmol/L Chloride 102 (96-108) mmol/L Carbon Dioxide 25 (22-29) mmol/L Anion Gap 13 (12-20) BUN 7 L (9-16) mg/dL Creatinine 0.64 (0.5-1.4) mg/dL Estim Creat Clear Calc 162.1 Estimated GFR > 60 Random Glucose 97 (60-115) mg/dL Calcium 9.7 (8.4-10.2) mg/dL Magnesium 2.2 (1.6-2.6) mg/dL Total Bilirubin 0.4 (0.0-1.0) mg/dL AST 18 (5-31) U/L ALT 23 (0-31) U/L Alkaline Phosphatase 57 (39-117) U/L Total Protein 7.8 (6.5-8.0) g/dL Albumin 4.5 (3.5-5.0) g/dL Beta HCG, Quant 20702 mIU/mL Urine Color Urine Appearance Urine pH (5.0-9.0) Ur Specific [place] (1.005-1.025) Urine Protein (Neg-Trace) mg/dL Urine Glucose (UA) (Negative) mg/dL Urine Ketones (Negative) mg/dL Urine Blood (Negative) Urine Nitrite (Negative) Ur Leukocyte Esterase (Negative) Urine RBC (0-2) /HPF Urine WBC (0-5) /HPF Ur Squamous Epith Cells (0-2) /HPF Urine Bacteria (None Seen) Hyaline Casts (0-2) /LPF Blood Type Antibody Screen <Alfie Mcgraw MD - Last Filed: 08/28/22 22:05> Discharge Plan Discharge Clinical Impression: Normal first in first trimester, Intrauterine , Pelvic pain <MARIA Newell - Last Filed: 08/28/22 17:11> Patient Disposition: Home, Self-Care <MARIA Newell - Last Filed: 08/28/22 17:11> Instructions: at 7 to 10 Weeks (ED) <MARIA Newell - Last Filed: 08/28/22 17:11> Additional Instructions: Your test was positive. Your CBC and comprehensive metabolic panel were normal. Your blood type is A positive. The ultrasound revealed you have a single intrauterine (1 baby) and you are 7 weeks and 5 days based on the size of the baby on the ultrasound. The ultrasound did reveal an incidental finding in the uterus which may be a fibroid, bleed or muscle contraction. You will need to follow-up with our OBGYN for repeat ultrasound to further evaluate this finding. Please see the ultrasound report below. You can take Tylenol 500 mg pills, 2 pills every 4-6 hours as needed for pain. Do not take any ibuprofen, Motrin, Advil, Aleve or naproxen, these medications can cause bleeding in . Take vitamins as prescribed once a day. Follow-up with our OBGYN, Dr. Stoner in 2 weeks. Please return to the emergency department if your symptoms get worse or if you develop any symptoms that are concerning to you. Pelvic ultrasound reading IMPRESSION: There is a live single intrauterine gestation with the best estimate of gestational age is 7 weeks 5 days. Cardiac activity present at 163 bpm. Abnormal myometrial echogenicity. Possibilities include fibroids, uterine contractions or areas of hemorrhage. Depending upon the clinical circumstances consider a follow-up study. Dictated By:August Quevedo MD <MARIA Newell - Last Filed: 08/28/22 17:11> Prescriptions: New prenat.vits,kimberly,lga-[id number] Tablet 1 tab PO DAILY 90 Days Qty: 90 0RF No Action cyclobenzaprine 10 mg tablet 10 mg PO TID PRN (Reason: muscle spasm) Qty: 14 0RF lidocaine 4 % adhesive patch,medicated 1 patch topical DAILY PRN (Reason: pain) Qty: 10 0RF Rx Instructions: may leave on for up to 12 hrs ibuprofen 600 mg tablet 600 mg PO Q6H PRN (Reason: pain) Qty: 30 0RF nitrofurantoin monohyd/m-cryst [Macrobid] 100 mg capsule 100 mg PO BID 5 Days Qty: 10 0RF Rx Instructions: must administer with a meal/food cetirizine [All Day Allergy (cetirizine)] 10 mg tablet 10 mg PO DAILY PRN (Reason: allergy symptoms) Qty: 20 0RF fluticasone propionate [Flonase Allergy Relief] 50 mcg/actuation spr ay,suspension 1 spray intranasal BID Qty: 16 0RF Rx Instructions: administer into each nostril benzonatate 100 mg capsule 100 mg PO BID PRN (Reason: cough) Qty: 20 0RF <MARIA Newell - Last Filed: 08/28/22 17:11> Referrals: Phani Stoner MD [Physician] - 2 weeks (, pelvic pain, 7w5d IUP on US, Abnormal myometrial echogenicity. Possibilities include fibroids, uterine contractions or areas of hemorrhage.) <MARIA Newell - Last Filed: 08/28/22 17:11>
[2022-08-28 17:07] VITALS: BP 147/93; PULSE 83; RESP 20; TEMP 36.6; O2SAT 100; BMI 35.2
[2022-08-28 17:34] LABS: MANUAL DIFF FLAG NO
[2022-08-28 17:38] LABS: Basophils Absolute Auto 0.1 X10*3/uL (0.0-0.2); Basophils Percent Auto 0.6 % (0-2); Eosinophils Absolute Auto 0.1 X10*3/uL (0.0-0.4); Eosinophils Percent Auto 0.9 % (0-4); Hematocrit 43.7 % (37.0-47.0); Imm Gran Abs Auto 0.03 X10*3/uL (0.00-0.03); Imm Gran Pct Auto 0.3 % (0.0-0.4); Lymphocytes Absolute Auto 1.8 X10*3/uL (1.2-4.9); Lymphocytes Percent Auto 20.1 % (20-40); Mean Corpuscular Hemoglobin 30.1 pg (27.0-33.0); Mean Platelet Volume 11.7 fL (9.4-12.3); Monocytes Absolute Auto 0.8 X10*3/uL (0.1-1.2); Monocytes Percent Auto 9.3 % (2-11); Neutrophils Absolute Auto 6.1 x10*3/uL (2.0-8.3); Neutrophils Percent Auto 68.8 % (45-73); Platelet Count 246 X10*3/uL (160-400); Red Blood Count 4.65 X10*6/uL (4.20-5.50); Red Cell Distribution Width 14.1 % (11.0-16.0); White Blood Count 8.8 X10*3/uL (4.8-10.8)
[2022-08-28 17:40] LABS: Appearance Urine Turbid; Color Urine Yellow; Glucose Urine UA Negative (Negative); Leukocyte Esterase Urine Large (3+) (Negative); Nitrite Urine Negative (Negative); Specific Gravity - Urine 1.015 (1.005-1.025); UMIC TRIGGER UACC YES; Urine Blood Negative (Negative); Urine Ketones Negative (Negative); Urine Protein Negative (Neg-Trace)
[2022-08-28 17:43] LABS: Bacteria Urine Trace (None Seen); Hyaline Casts Urine 0-2 /LPF (0-2); RBC Urine 0-2 /HPF (0-2); UACC Culture Trigger YES
[2022-08-28 17:45] LABS: INTERNATIONAL NORM RATIO 1.3 (0.9-1.1); Prothrombin Time 14.5 SEC (10.0-13.1)
[2022-08-28 17:47] LABS: Partial Thromboplastin Time 30.2 SEC (26.0-36.4)
[2022-08-28 18:12] LABS: Alanine Aminotransferase 23 U/L (0-31); Albumin Level 4.5 g/dL (3.5-5.0); Alkaline Phosphatase 57 U/L (39-117); Anion Gap 13 (12-20); Aspartate Amino Transferase 18 U/L (5-31); Bilirubin Total 0.4 mg/dL (0.0-1.0); Blood Urea Nitrogen 7 mg/dL (9-16); Calcium 9.7 mg/dL (8.4-10.2); Carbon Dioxide 25 mmol/L (22-29); Chloride 102 mmol/L (96-108); Creatinine Clr Calc Pharmacy 162.1; Estimated Glomerular Filt Rate > 60; Glucose Random 97 mg/dL (60-115); Magnesium 2.2 mg/dL (1.6-2.6); Potassium 4.4 mmol/L (3.3-5.1); Sodium 136 mmol/L (135-145); Total Protein 7.8 g/dL (6.5-8.0)
[2022-08-28 21:21] VITALS: BP 108/61; PULSE 80; RESP 18; TEMP 36.6; O2SAT 100
--- OUTSIDE RECORDS SUMMARY | 2022-08-28 21:31 | XMS_ITS ---
:1995 Author Care Team Providers Name Role Phone DR. 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 Medications Name Status Start Date Stop Date ? ? amoxicillin 500 mg-potassium clavulanate 125 mg tablet Completed ? 09/20/2017 TAKE 1 TABLET BY MOUTH EVERY 12 HOURS amoxicillin 875 mg tablet Completed ? 2016 TAKE 1 TABLET BY MOUTH TWICE A DAY UNTIL FINISHED atenolol Unknown ? Not available 40 mg once a day atenolol 25 mg tablet Active ? Not availa ble Take 25 mg every day by oral route in the morning. atenolol 50 mg tablet Unknown ? Not availa ble Take 1 tablet twice a day by oral route. Nancy is actually taking 50 mg po q A M and sometimes 25 mg po q PM (and other times no medication at all at night). ciprofloxacin 500 mg tablet Unknown ? Not available TAKE 1 TABLET BY MOUTH EVERY 12 HOURS Denta 5000 Plus 1.1 % cream Unknown ? Not available USE DIRECTED ferrous sulfate 324 mg (65 mg iron) tablet,delayed release Compl eted ? 03/23/2018 TAKE 1 TABLET TWICE A DAY AFTER MEALS ibuprofen 600 mg tablet Completed ? 03/23/20 18 TAKE 1 TABLET EVERY 6 HOURS NEEDED FOR PAIN lorazepam 0.5 mg tablet Unknown ? Not avai lable TAKE 1 TABLET AT BEDTIME NEEDED metoprolol succinate ER 100 mg tablet,extended release 24 hr Com pleted ? 03/27/2019 TAKE 1 TABLET EVERY DAY BY ORAL ROUTE IN THE MORNING. metoprolol tartrate 25 mg tablet Unknown ? Not available 25 mg po tid metronidazole 500 mg tablet Completed ? 03/03 TAKE 1 TABLET BY MOUTH EVERY 12 HOURS *AVOID ALCOHOL* oxycodone-acetaminophen 5 mg-325 mg tablet Completed ? 09/20/2017 TAKE 1 TABLET BY MOUTH EVERY 4 TO 6 HOURS NEEDED FOR PAIN 28 mg iron-800 mcg tablet Completed ? 09/20/2017 TAKE 1 TABLET BY MOUTH EVERY DAY FOR 90 DAYS Stool Softener-Laxative 8.6 mg-50 mg tablet Completed ? 03/23/2018 TAKE 2 TAB AT BEDTIME NEEDED FOR CONSTIPATION Vitamin D3 25 mcg (1,000 unit) capsule Completed ? 11/16/2016 TAKE ONE CAPSULE BY MOUTH EVERY DAY Problems Name Status Onset Date Source ? Conduction Disorder of the Heart Unknown ? Encounter Ventricular Tachycardia Active ? Encounte r Premature Beats Unknown ? Encounter Palpitations Unknown ? Encounter Ventricular Premature Beats Unknown ? [place] unter Procedures Date Name Performed by ? 04/07/2014 Holter Monitor Information not avai lable 11/25/2014 Rhythm Strip Electrocardiogram Informati on not available 02/26/2015 Electrocardiogram Information not avai lable 05/29/2015 Electrocardiogram Information not avai lable 11/23/2015 Electrocardiogram Information not avai lable 05/18/2016 Electrocardiogram Information not avai lable 11/16/2016 Electrocardiogram Information not avai lable 04/12/2017 Holter Monitor Information not avai lable 09/20/2017 Electrocardiogram Information not avai lable 03/23/2018 Electrocardiogram Information not avai lable 03/27/2019 Electrocardiogram Information not avai lable 03/27/2019 Holter Monitor Information not avai lable 02/27/2020 Holter Monitor Information not avai lable Results Lab Results None recorded. Past Encounters None recorded. Social History Tobacco Smoking Status Never Smoker Vaccine List None recorded. Plan of Care Reminders Provider Appointments None recorded. ? ? Lab None recorded. ? ? Referral None recorded. ? ? Procedures None recorded. ? ? Surgeries None recorded. ? ? Imaging None recorded. ? ? Vitals 03/27/2019 03:15PM FOLLOW UP (60) Height Weight BMI Blood Pressure 164.5 cm 91.8 kg 33.9 kg/m2 120/68 mm[Hg] 03/23/2018 02:00PM FOLLOW UP (60) Height Weight BMI Blood Pressure 164.5 cm 90 kg 33.3 kg/m2 109/67 mm[Hg] 09/20/2017 10:00AM FOLLOW UP (60) Height Weight BMI Blood Pressure 164.5 cm 97.5 kg 36 kg/m2 103/64 mm[Hg] 11/16/2016 04:00PM FOLLOW UP (60) Height Weight BMI Blood Pressure 160 cm 87.5 kg 34.2 kg/m2 100/62 mm[Hg] 05/18/2016 11:00AM FOLLOW UP (60) Height Weight BMI Blood Pressure 160 cm 90 kg 35.2 kg/m2 104/64 mm[Hg] 11/23/2015 03:30PM FOLLOW UP (60) Height Weight BMI Blood Pressure 160 cm 89.5 kg 35 kg/m2 94/56 mm[Hg] 05/29/2015 03:00PM FOLLOW UP (60) Height Weight BMI Blood Pressure 160 cm 88 kg 34.4 kg/m2 92/66 mm[Hg] 02/26/2015 02:30PM FOLLOW UP (60) Height Weight BMI Blood Pressure 162 cm 87.5 kg 33.3 kg/m2 118/65 mm[Hg] 01/08/2015 01:30PM FOLLOW UP (60) Height Weight BMI Blood Pressure 165 cm 87.5 kg 32.1 kg/m2 100/62 mm[Hg] 11/14/2014 08:30AM FOLLOW UP (60) Height Weight BMI Blood Pressure 165 cm 88.5 kg 32.5 kg/m2 102/56 mm[Hg] 05/05/2014 01:30PM FOLLOW UP (60) Height Weight BMI Blood Pressure 165 cm 76.6 kg 28.1 kg/m2 120/73 mm[Hg] 04/07/2014 03:00PM FOLLOW UP (60) Height Weight BMI Blood Pressure 165 cm 90.7 kg 33.3 kg/m2 110/68 mm[Hg] 03/19/2014 03:00PM NEW PATIENT Height Weight BMI Blood Pressure 165 cm 90.7 kg 33.3 kg/m2 102/66 mm[Hg]
[2022-08-28 22:05] VITALS: BP 115/64; PULSE 78; RESP 16; TEMP 36.9; O2SAT 100
== END 2022-08-28 22:12 | disposition home or self-care (01) ==
PROVIDERS: Physician Assistant Medical; Emergency Provider Emergency Medicine Emergency Medical Services
DX: O26.91 Pregnancy related conditions, unspecified, first trimester (principal); Z3A.01 Less than 8 weeks gestation of pregnancy; Z79.899 Other long term (current) drug therapy
CPT/HCPCS: 36415; 76801; 76817; 80053; 81001; 83735; 84702; 85025; 85610; 85730; 86850; 86900; 86901; 87086; 99283

== ENCOUNTER → 2022-09-05 09:56 | Outpatient (BNVA) | payer MEDICAID, SELFPAY | PROVIDERS: Visit Provider Advanced Practice Midwife | DX: Z34.90 Encounter for supervision of normal pregnancy, unspecified, unspecified trimester (principal) | CPT/HCPCS: 81025; 99212 ==

== ENCOUNTER 2024-07-29 12:25 | Outpatient (REF) | payer MEDICAID, SELFPAY ==
[2024-07-29 14:28] LABS: Alanine Aminotransferase 21 U/L (0-31); Albumin Level 4.6 g/dL (3.5-5.0); Alkaline Phosphatase 62 U/L (39-117); Anion Gap 12 (12-20); Aspartate Amino Transferase 30 U/L (5-31); Bilirubin Total 0.2 mg/dL (0.0-1.0); Blood Urea Nitrogen 9 mg/dL (9-16); Calcium 9.8 mg/dL (8.4-10.2); Carbon Dioxide 24 mmol/L (22-29); Chloride 105 mmol/L (96-108); Cholesterol 155 mg/dL (<200); Estimated Glomerular Filt Rate > 60; Glucose Random 97 mg/dL (60-115); HDL Cholesterol 58 mg/dL (>40); LDL Cholesterol Calculated 88 mg/dL (<100); Potassium 3.5 mmol/L (3.3-5.1); Sodium 137 mmol/L (135-145); Total Protein 7.9 g/dL (6.5-8.0); Triglycerides 48 mg/dL (<150)
[2024-07-30 12:07] LABS: Syphilis Screen Nonreactive (Nonreactive)
[2024-07-30 12:07] LABS: HBsAGNum1 0.35 S/CO (0.00-0.99); HIV AB/AG Nonreactive (Nonreactive); HIV Num 1 0.06 S/CO (0.00-0.99); Hepatitis B Core Antibody Nonreactive (Nonreactive); Hepatitis B Surface Antigen Negative (Negative); ~HepC Num1 0.11 S/CO (0.00-0.79); ~Hepatitis B Surface Antibody NONREACTIVE (Nonreactive); ~Hepatitis C Antibody Nonreactive (Nonreactive)
[2024-08-01 12:08] LABS: Anti Nuclear Antibody Screen NEGATIVE (NEGATIVE)
== END 2024-07-29 12:26 | disposition home or self-care (01) ==
LOC: HO.HHCL 12:25
PROVIDERS: Visit Provider Registered Nurse
DX: L53.9 Erythematous condition, unspecified (principal); E66.812 Obesity, class 2; Z68.35 Body mass index [BMI] 35.0-35.9, adult; E66.09 Other obesity due to excess calories; Z11.3 Encounter for screening for infections with a predominantly sexual mode of transmission
CPT/HCPCS: 36415; 80053; 80061; 86038; 86704; 86706; 86780; 86803; 87340; 87389